=== PATIENT | male | born 1960 | race Caucasian/White ===

== ENCOUNTER 2019-07-02 10:00 | Day surgery (SDC) | payer BC ==
[~2019-07-02] VITALS: Ht 162.6 cm; Wt 92.5 kg
--- NOTE | ~2019-07-02 | OR ---
[facility] [address] [place], [place] [address] Draft DATE OF OPERATION: 07/02/2019 SURGEON: Davi Reddy MD PREOPERATIVE DIAGNOSES: 1. Recurrent persistent drainage at the umbilicus (wound site from relatively recent trocar aspect for spinal surgery). 2. Prior history of incisional hernia with recurrence including the repair with implantation of Prolene mesh, 2013. 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 No sign of purulence. PROCEDURES: 1. Exploration of abdominal wall wound with debridement of subcutaneous tissue portions of fascia. 2. Sharp debridement and excision of fibrous sinus tract. 3. Explantation of portion of Prolene suture. 4. Application of SNAP wound pressure device. ANESTHESIA: General LMA, Davi Antunez CRNA, and local 10 mL of 0.25% Marcaine with epinephrine. INDICATION: This 58-year-old white man is patient of Dr. Vivienne Elizondo. In 2012, he underwent repair of an umbilical hernia with implantation of Prolene mesh. He was morbidly obese at that time. He did lose weight around that time, developed a recurrent hernia. This was repaired with implantation of Prolene mesh once again and the mesh appeared to have distracted from the fascial layer at that time. He has done well ever since that time, though he has regained weight and has considerable abdominal obesity. In the past year, he underwent several spinal operations at least one of which included a transabdominal approach to the anterior spine. The incision for this access was in the inferior aspect of the umbilicus. The patient has had recurrent bouts of drainage from that incision site since that time, it has never been enteric and content has never looked to be a fistula per se. Antibiotic treatment has been undertaken in the past. PATIENT NAME: MAURO MULTANI OPERATIVE REPORT DATE OF : 58 REPORT #: [id number] PHYSICIAN: DAVI REDDY MD PCP: VIVIENNE ELIZONDO MD REPORT IS CONFIDENTIAL AND NOT TO BE RELEASED WITHOUT AUTHORIZATION [facility] [address] [place], [place] [address] Draft More recently, he had spontaneous drainage once again and he is now admitted to undergo exploration of the wound, debridement as necessary intending to find possibly a foreign body (suture granuloma) or other factors that may contribute to the recurrent problem. Notably, he had no such problem prior to his trocar application in the past year or so. FINDINGS: There was no sign of purulent drainage from the tract. It was probed down to the fascia. Gram stain and cultures were obtained. Incision was made such that it allowed exploration of the sinus tract and the surrounding soft tissue down to the fascial area. There appeared to be a sinus tract extending below the thick fascial layer and with further dissection, a small portion of Prolene suture. Some mesh was noted cephalad to this area. The incision incised was the trocar site from spinal access surgery in the past year or so. At conclusion, there was no sign of drainage of ongoing fluid or anything of that sort, however, it is deemed most advisable to use a SNAP wound device for wound management. DESCRIPTION OF PROCEDURE: The patient was brought to the operating room, given a general LMA type anesthetic. Preoperative antibiotic Ancef was given. Sequential compression device stockings used. The abdomen was prepared with chlorhexidine solution and draped sterilely. The midline incision extending above the umbilicus for prior hernia surgery was noted. There was a separate incision inferior and lateral to that incision at the level of the umbilicus. This was the site of trocar application and the site of recurrent drainage. The site was probed with a hemostat tip, which showed a chronic sinus. There was no drainage of purulence. Incision was made in the incision site and dissection carried through what proved to be rather thick fibrous tissue not particularly worrisome in its appearance for infection currently. Dissection was carried more fully down to the fascial layer where a granulating small sinus tract was noted. This appeared to pass beneath the fascia itself. This was followed down with sharp and blunt and electrocautery dissection. The gelatinous though small and narrow sinus tract was followed down below the fascial layer. There was at the base a blue Prolene suture remnant. This was explanted with the fibrous tract as well. Cautery was undertaken further. There may be a defect of less than 5 mm in the site. The upper edge of the sinus tract had a small amount of well-incorporated mesh. The area was debrided as much as possible and secured with electrocautery and methods of management were reconsidered. Given the small fascial defect, I am not worried of hernia development. Given his body habitus and so forth, wound care simplification was deemed advisable and on that basis, a SNAP negative pressure wound therapy device applied to the depths of the wound and the SNAP initiated as usual. Good suction was maintained. The patient was allowed to emerge from anesthesia, was extubated, taken to recovery room PATIENT NAME: MAURO MULTANI OPERATIVE REPORT DATE OF : 58 REPORT #: [id number] PHYSICIAN: DAVI REDDY MD PCP: VIVIENNE ELIZONDO MD REPORT IS CONFIDENTIAL AND NOT TO BE RELEASED WITHOUT AUTHORIZATION [facility] [address] [place] [place], [place] [address] Draft in good condition having suffered no complication. Sponge, needle, and instrument counts reported as correct x3. BLOOD LOSS: Minimal. MD BOBO Quan/VALDO /[id number] cc: Vivienne Elizondo MD Copies: VIVIENNE ELIZONDO MD ~ PATIENT NAME: MAURO MULTANI OPERATIVE REPORT DATE OF : 58 REPORT #: [id number] PHYSICIAN: DAVI REDDY MD PCP: VIVIENNE ELIZONDO MD REPORT IS CONFIDENTIAL AND NOT TO BE RELEASED WITHOUT AUTHORIZATION
[~2019-07-02 10:00] MED LIST: ANTIVERT50 MG PO; DULOXETINE HCL30 MG PO; LEXAPRO10 MG PO; MECLIZINE HCL25 MG PO; NAPROXEN500 MG PO; NORCO 5-325 TA1 EACH PO; PERCOCET 5-3251 EACH PO; PERCOCET 7.5-31 EACH PO; PREVACID30 MG PO; SULFASALAZINE500 M1 PO; XANAX0.5 MG PO; ZESTRIL20 MG PO
--- NOTE | 2019-07-02 13:35 | NUR ---
07/02/19 1335 Kylee Watson 1325 PATIENT ARRIVES TO PACU WITH EYES CLOSED, BUT ASKING QUESTIONS APPROPRIATELY. DENIES PAIN OR NAUSEA. RESP EVEN AND UNLABORED, MASK AT 10 LITERS, TURNED DOWN TO 6 LITERS. 1330 PATIENT RESTING QUIETLY. CONTINUES TO DENY PAIN OR NAUSEA. RESP EVEN AND UNLABORED, MASK OFF, ROOM AIR SATS >95%.
[2019-07-02] MEDS ORDERED: OFIRMEV1000 MG/10 IV (13:45)
[2019-07-02] MEDS ORDERED: MOTRIN IB200 MG PO (13:46)
[2019-07-02] MEDS ORDERED: NORCO 5-325 TA1 EACH PO (13:46)
--- NOTE | 2019-07-03 13:35 | PATH ---
[facility] [address] [place], [place] [address] Signed SPECIMEN(S): A ABDOMEN SPECIMEN SOURCE: A. ABDOMEN CLINICAL HISTORY: Abscess of abdominal wound, history of incisional hernia repair. FINAL PATHOLOGIC DIAGNOSIS: Tissue, abdomen, debridement: - Fibroadipose tissue with fibrosis and mixed acute and chronic inflammation. - Negative for malignancy and atypia. LJA:cml:C2NR MICROSCOPIC EXAMINATION: Histologic sections of all submitted blocks are examined by light microscopy. These findings, together with the gross examination, support the pathologic diagnosis. GROSS DESCRIPTION: The specimen, labeled "CS, debridement of abdomen," is received in formalin and consists of five cooper-pink to cooper-yellow and cauterized soft tissue fragments, aggregating to 2.5 x 2.0 x 1.0 cm. Sectioning shows cooper-white and fibrous cut surfaces with no discrete lesions identified. Plate Embosser sections are submitted in cassette (A1). AR (under the direct supervision of a pathologist) The Gross Description was prepared using a voice recognition system. The report was reviewed for accuracy; however, sound-alike word errors, addition and/or deletions may occur. If there is any question about this report, please contact Client Services. PERFORMING LABORATORY: The technical component was performed by [facility], [address] [place] [address] (Hand Roller Engraver: Breanna De Anda MD; CLIA# [id number]). [facility], [address] [address] (Hand Roller Engraver: Gonzales Antunez MD; CLIA# [id number]). Diagnostician: Gonzales Antunez MD Pathologist PATIENT NAME: MAURO MULTANI PATHOLOGY DATE OF : 58 REPORT #: [id number] PHYSICIAN: [facility] PCP: VIVIENNE CEBALLOS MD REPORT IS CONFIDENTIAL AND NOT TO BE RELEASED WITHOUT AUTHORIZATION [address] [address] Signed Electronically Signed 07/03/2019 Copies: ~ PATIENT NAME: MAURO MULTANI PATHOLOGY DATE OF : 58 REPORT #: [id number] PHYSICIAN: [facility] PCP: VIVIENNE CEBALLOS MD REPORT IS CONFIDENTIAL AND NOT TO BE RELEASED WITHOUT AUTHORIZATION
== END 2019-07-02 16:20 | disposition home or self-care (01) ==
LOC: OPS 10:00 → DS 10:00 → OPS 11:15 → DS 11:15 → OPS 16:20
PROVIDERS: Surgery
PROC: 0JB80ZZ Excision of Abdomen Subcutaneous Tissue and Fascia, Open Approach (ICD-10-PCS; principal; 2019-07-02 11:15)
DX: T81.89XA Other complications of procedures, not elsewhere classified, initial encounter (principal); K63.2 Fistula of intestine; E66.01 Morbid (severe) obesity due to excess calories; I10 Essential (primary) hypertension; L02.211 Cutaneous abscess of abdominal wall; M54.5 Low back pain; G89.29 Other chronic pain; Z68.35 Body mass index [BMI] 35.0-35.9, adult; Z79.899 Other long term (current) drug therapy
CPT/HCPCS: J0330; J0461; J0690; J1100; J1644; J1885; J2250; J2405; J2704; J2765; J3010; J7120

== ENCOUNTER 2022-04-02 07:25 | Day surgery (SDC) | payer BC ==
[~2022-04-02] VITALS: Ht 162.6 cm; Wt 103.2 kg
[~2022-04-02 07:25] MED LIST changes: +HYDROCHLOROTHIA25 MG PO; +K-TAB ER20 MEQ PO; +LASIX20 MG PO; +MOTRIN IB200 MG PO; +NORVASC10 MG PO; +OFIRMEV1000 MG/10 IV; +PLAQUENIL200 MG PO
[2022-04-02] MEDS ORDERED: DICLOFENAC SODI75 MG PO (10:34)
[2022-04-02] MEDS ORDERED: XARELTO10 MG PO (10:34)
[2022-04-02] MEDS ORDERED: GABAPENTIN600 MG PO (10:34)
[2022-04-02] MEDS ORDERED: OXYCODONE HCL5 MG PO (10:34)
--- NOTE | 2022-04-02 11:13 | NUR ---
04/02/22 1113 Kylee Watson 1046 PATIENT ARRIVES TO PACU RESTING WITH EYES CLOSED. ORAL ARIWAY IN PLACE. PATIENT OPENS EYES WITH VERBAL STIMULI, ORAL AIRWAY REMOVED. RESP EVEN BUT LABORED, EXP WHEEZING THROUGH OUT. PATIENT DENIES PAIN OR NAUSEA.
--- NOTE | 2022-04-02 15:49 | NUR ---
PATIENT ARRIVED TO [facility] AT 15OO VIA [facility]. PATIENT WAS ABLE TO TRANSFER SELF FROM BED TO [facility] WITH 2 PA. RIGHT KNEE DRESSING IS CDI, CMS INTACT, FOOT SCD'S ARE ON, BI-PAP IS ON AND PATIENT IS SLEEPING. SPOUSE IS IN THE ROOM. PER MECHANICAL SPREADER OPERATOR REPORT, PATIENT HAS HAD NO URINE OUT ALL DAY, NO REPORTED BLADDER SCAN VOLUMES.
--- NOTE | 2022-04-02 16:14 | NUR ---
PATIENT BLADDER SCANNED FOR 517ML, WAS ABLE TO VOID 50ML OF DARK YELLOW URINE. PATIENT REQUESTED TO TRY AND VOID AGAIN IN ONE HOUR, BEFORE HAVING SANTOS PLACED.
--- NOTE | 2022-04-02 16:56 | NUR ---
PATIENT ABLE TO VOID ANOTHER 50ML OF URINE. PATIENT RATES PAIN 2/10
--- NOTE | 2022-04-02 17:30 | NUR ---
PATIENT ABLE TO VOID ANOTHER 100ML OF YELLOW URINE. PATIENT IS SITTING UP IN BED FOR CLEAR LIQUID DINNER. PATIENT IS 92% ON ROOM AIR AT THIS TIME. PATIENT DOES REQUEST HIS BID MECLIZINE AND DR. ALVARADO WILL BE CALLED
--- NOTE | 2022-04-02 17:56 | NUR ---
CALL TO DR. ALVARADO TO ORDER HOME MECLIZINE. DR. ALVARADO GIVEN UPDATE THAT PATIENT IS MORE AWAKE, ON 2L OF O2, TAKING IN CLEAR LIQUIDS.
--- NOTE | 2022-04-02 19:51 | NUR ---
FAMILY PASSED BY NURSE'S STATION STATED PATIENT VOIDED IN THE URINAL AND LEFT IT IN THE BATHROOM. THIS SENIOR DATA ANALYST WENT IN AND EMPTIED. PATIENT DENIES ANY NEEDS AT THIS TIME.
--- NOTE | 2022-04-02 19:54 | NUR ---
REPORT RECEIVED FROM DAY SHIFT RN. PT LYING IN BED ALERT AND ORIENTED, DROWSY BUT AWAKENS EASILY. REPORTS PAIN IS TOLERABLE. SpO2 93% ON 2L/NC. DENIES NEEDS AT THIS TIME. AT BEDSIDE. CALL LIGHT IN REACH. WHITE BOARD UPDATED.
--- NOTE | 2022-04-02 22:40 | NUR ---
EVENING ASSESSMENT COMPLETE. SCHEDULED MEDS ADMIN PER EMAR. PT REPORTS RIGHT KNEE PAIN /. SCHEDULED PAIN MEDS GIVEN. PT DENIES NAUSEA. RIGHT KNEE DRESSING CDI. ON-Q PUMP INFUSING 6ML/HR. FRESH ICE TO CRYO. SCD'S/TEDS IN PLACE. CMS INTACT. PT VOID 200 ML. BLADDER SCANNED FOR 157ML. PT DENIES THE NEEDS TO VOID AT THIS TIME. CPOX IN PLACE. SpO2 93% ON 2L/NC. 2PA TO REPOSITION PT IN BED. PT DENIES QUESTIONS OR CONCNERS. CALL LIGHT IN REACH.
--- NOTE | 2022-04-02 23:00 | NUR ---
BLADDER SCANNED PER PRIMARY RN DONE.
--- NOTE | 2022-04-03 00:45 | NUR ---
PT RESTING IN BED WITH EYES CLOSED. RESPIRATIONS EVEN. CALL LIGHT IN REACH.
--- NOTE | 2022-04-03 02:15 | NUR ---
PATIENT TRIED TO USE THE URINAL. UNABLE TO VOID. BLADDER SCANNED. 202ML. RN NOTIFIED.
--- NOTE | 2022-04-03 02:30 | NUR ---
VS AND I&O COMPLETE. PT REPORTS RIGHT KNEE PAIN 11/02. SCHEDULED PAIN PRINT DECORATOR PER EMAR. PT DENIES NAUSEA. O2 DOWN TO 1L/NC. SpO2 94%. PT DUE TO VOID. BLADDER SCANNED FOR 202 ML. ENCOURAGED PO INTAKE. RIGHT KNEE DRESSING CDI. SCD'S/TEDS IN PLACE. FRESH ICE TO CRYO. ON-Q PUMP IN PLACE. PT DENIES FURTHER NEEDS. CALL LIGHT IN REACH.
--- NOTE | 2022-04-03 04:09 | NUR ---
PT AWAKENED FOR SCHEDULED PAIN MEDS. REPORTS RIGHT KNEE PAIN 1-11/02. SpO2 92% ON 1L/NC. DENIES NEEDS. CALL LIGHT IN REACH.
--- NOTE | 2022-04-03 07:01 | NUR ---
SCHEDULED MEDS ADMIN PER EMAR. PT REPORTS RIGHT KNEE PAIN 11/02. PT ABLE TO VOID 300 ML CONCENTRATED URINE. ENCOURAGED PO INTAKE. APPLE JUICE AND ICE WATER PROVIDED. IV IN LEFT HAND NOT PATENT. 20G STARTED IN RIGHT AC WITH ONE ATTEMPT. IV ABX INFUSED WNL. PT REMAINS ON 1L/NC. SpO2 88-89% ON RA. PT DENIES FURTHER NEEDS. CALL LIGHT IN REACH.
--- NOTE | 2022-04-03 07:20 | OR ---
[facility] [address] [place], [place] [address] Signed DATE OF OPERATION: 04/02/2022 SURGEON: Gabriela Antunez MD PREOPERATIVE DIAGNOSIS: Severe degenerative joint disease, right knee. POSTOPERATIVE DIAGNOSIS: Severe degenerative joint disease, right knee. PROCEDURE PERFORMED: Right total knee arthroplasty with Tashi. BREEDER SERVICE TECHNICIAN: ZANDER Michael. Mariah was present and critical for all portions of the procedure. ANESTHESIA: General. BLOOD LOSS: 175 mL. TOURNIQUET TIME: Zero. IMPLANTS: [place] Triathlon size 4, 10 mm polyethylene, and 32 mm patella. BRIEF HISTORY: Randi is a 61-year-old gentleman with pain in his knee. He had undergone bracing, anti-inflammatories, and injections without substantial relief and wished to proceed with total knee replacement. Risks, benefits, and alternatives were discussed at length. He understands and wishes to proceed. Once consent was obtained, he was taken to the operating room. After adequate anesthesia, he was placed on operating table on hip bump. The leg was then prepped and draped in the standard sterile fashion. Standard anterior approach through a midline incision was taken through skin and subcutaneous tissue. The mid vastus arthrotomy was performed and the infrapatellar fat pad, which was scarred and contracted secondary to his ACL reconstruction was removed. The MCL was elevated as a sleeve to the mid medial portion. The anterior and lateral Electronically Signed By: GABRIELA ANTUNEZ MD 04/03/22 0720 PATIENT NAME: MAURO MULTANI OPERATIVE REPORT DATE OF : 58 REPORT #: [id number] PHYSICIAN: GABRIELA ANTUNEZ MD PCP: VIVIENNE CEBALLOS MD REPORT IS CONFIDENTIAL AND NOT TO BE RELEASED WITHOUT AUTHORIZATION [facility] [address] [place], [place] [address] Signed meniscus were transected as was the remainder of the ACL reconstruction, which was intact. The knee was flexed and the navigation guide was placed in the medial femoral condyle along with the checkpoint. The tibial navigation guide was placed one handbreadth below the tibial tuberosity percutaneously. Checkpoint was also placed in the proximal tibia. The leg was then registered with the computer, followed by the fine anatomic points of the knee. Varus valgus testing showed his ligaments to be balanced. The robot was then brought in and the four straight cuts were made with care taken to protect the surrounding soft tissue. The 2 angle cuts were then made. The bone remnants were removed along with any osteophytes. The trials were then positioned and the knee was taken from 0-140 degrees of flexion with good stability. It was a little bit loose and hyperextended, so we changed it to a 10, this was stable. The patella was cut sized and drilled for 32 mm patella. The distal femoral drill holes were then drilled and the proximal tibia was finished using the keel punch. The components were obtained and the tibia was impacted in position first, it was impacted until it was flushed and secure. The polyethylene was snapped into position and the femur was impacted. The knee was extended and nicely loaded. The patella was clamped into position. Excellent fixation was noted in all bony components. The knee was taken through range of motion and the patella tracked well. The periarticular soft tissues were injected with 100 mL ropivacaine and Toradol mixture. The On-Q pain pump was percutaneously introduced into the adductor canal from the suprapatellar pouch. We irrigated the knee with 3000 mL of normal saline with an IrriSept soak in the middle. The arthrotomy was then closed using #2 StrataFix, subcutaneous tissue with #0 StrataFix, and skin with 3-0 StrataFix. The wound was super glued and dressed with an Acticoat 7 dressing, ABD, and Yefri wrap. He tolerated the procedure well. All sponge, needle, and instrument counts were correct. Gabriela Antunez MD BA/MODL /[id number] Copies: ~ Electronically Signed By: GABRIELA ANTUNEZ MD 04/03/22 0720 PATIENT NAME: MAURO MULTANI OPERATIVE REPORT DATE OF : 58 REPORT #: [id number] PHYSICIAN: GABRIELA ANTUNEZ MD PCP: VIVIENNE CEBALLOS MD REPORT IS CONFIDENTIAL AND NOT TO BE RELEASED WITHOUT AUTHORIZATION
--- NOTE | 2022-04-03 07:39 | NUR ---
REPORT FROM KARUNA MARKET ANALYST RN.
--- NOTE | 2022-04-03 09:07 | NUR ---
MORNING ASSESSMENT AND MEDICATIONS DONE. PATIENT REPORTS 3/10 RIGHT KNEE PAIN, GIVEN 5MG PO OXYCODONE FOR MORNING PHYSICAL THERAPY. SPOUSE IS IN ROOM, IV REMOVED WITH CATHETER INTACT. PATIENT IS LOOKING FORWARD TO GOING HOME AFTER PHYSICAL THERAPY.
--- NOTE | 2022-04-03 09:21 | NUR ---
DISCHARGE INSTRUCTIONS GIVEN, QUESTIONS ANSWERED.
--- NOTE | 2022-04-03 11:50 | NUR ---
PT ALERT, ORIENTED AND SUPPORTED BY HIS IDALIA AT . PT IS ANXIOUS TO DC GAVE ENCOURAGEMENT AND BLESSING. RN JEFF IN TO COMPLETE DC INSTRUCTIONS.
--- NOTE | 2022-04-03 12:55 | EKG ---
[facility] [address] [facility] [place] [address] Signed Sinus rhythm with short LA Nonspecific ST and T wave abnormality Abnormal ECG When compared with ECG of 01-JUL-2019 16:24, Nonspecific T wave abnormality now evident in Lateral leads QT has lengthened Confirmed by PHOEBE BENITES MD ([id number]) on 04/03/2022 12:55:35 PM Electronically Signed By: PHOEBE BENITES MD 04/03/22 1255 PATIENT NAME: MAURO MULTANI Electrocardiogram DATE OF : 58 PHYSICIAN: PHOEBE BENITES MD REPORT #: [id number] REPORT IS CONFIDENTIAL AND NOT TO BE RELEASED WITHOUT AUTHORIZATION
--- NOTE | 2022-04-04 00:25 | EKG ---
[facility] [address] [facility] [place] [address] Signed Normal sinus rhythm Nonspecific T wave abnormality Abnormal ECG When compared with ECG of 02-APR-2022 10:07, (Unconfirmed) Nonspecific T wave abnormality now evident in Inferior leads Nonspecific T wave abnormality, improved in Lateral leads QT has shortened Confirmed by KIAH NGO MD ([id number]) on 04/04/2022 12:25:00 AM Electronically Signed By: KIAH NGO MD 04/04/22 0025 PATIENT NAME: MAURO MULTANI Electrocardiogram DATE OF : 58 PHYSICIAN: KIAH NGO MD REPORT #: [id number] REPORT IS CONFIDENTIAL AND NOT TO BE RELEASED WITHOUT AUTHORIZATION
== END 2022-04-03 11:05 | disposition home or self-care (01) ==
LOC: DS 07:25 → MS 15:00 → DS 04-03 11:05
PROVIDERS: ATTEND Specialist
PROC: 0SRC0JZ Replacement of Right Knee Joint with Synthetic Substitute, Open Approach (ICD-10-PCS; principal; 2022-04-02 09:15)
DX: M17.11 Unilateral primary osteoarthritis, right knee (principal); G89.18 Other acute postprocedural pain; R09.02 Hypoxemia; Z88.6 Allergy status to analgesic agent; Z88.5 Allergy status to narcotic agent; Z88.8 Allergy status to other drugs, medicaments and biological substances
CPT/HCPCS: 36415; 64447; 71045; 76942; 80053; 85025; 87502; 93005; 93010; 94660; A9270; C1713; C1776; J0690; J1100; J1170; J1885; J1940; J2001; J2250; J2310; J2405; J2704; J2765; J2795; J7121; U0003

== ENCOUNTER 2025-03-12 10:01 | Emergency (ER) | payer OTHER, MEDICARE ==
[~2025-03-12] VITALS: Ht 162.6 cm; Wt 104.9 kg
[~2025-03-12 10:01] MED LIST changes: +CEFTRIAXONE2 G2 IM; +DICLOFENAC SODI75 MG PO; +GABAPENTIN600 MG PO; +OXYCODONE HCL5 MG PO; +XARELTO10 MG PO
[2025-03-12] MEDS ORDERED: LORazepam 1 MG TAB PO ONE (12:15)
[2025-03-12 13:26] VITALS: BP 165/101
== END 2025-03-12 13:26 | disposition home or self-care (01) ==
LOC: ED 10:01
DX: R42 Dizziness and giddiness (principal); I10 Essential (primary) hypertension; Z79.899 Other long term (current) drug therapy; Z88.5 Allergy status to narcotic agent; Z88.8 Allergy status to other drugs, medicaments and biological substances
CPT/HCPCS: 70551; 99284-25; A9270-GY